=== PATIENT | female | born 1985 | race Caucasian/White ===

== ENCOUNTER 2022-04-16 10:59 | Emergency (ER) | payer OTHER, MEDICAID ==
[2022-04-16] MEDS ORDERED: Sodium Chloride 0.9% 10 ML Syringe FLUSH PRN (11:00)
[2022-04-16] MEDS: Lactated Ringers 1,000 ML IV ONE (11:18)
[2022-04-16] MEDS: Ondansetron 4 MG/2 ML SDV IVPUSH ONE (11:19)
== END 2022-04-16 11:55 | disposition home or self-care (01) ==
LOC: VM.ED 10:59
DX: R11.2 Nausea with vomiting, unspecified (principal); T45.4X5A Adverse effect of iron and its compounds, initial encounter; J45.909 Unspecified asthma, uncomplicated; Z88.5 Allergy status to narcotic agent; Z88.8 Allergy status to other drugs, medicaments and biological substances; Z91.041 Radiographic dye allergy status; Z79.899 Other long term (current) drug therapy
CPT/HCPCS: 96361; 96374; 99283; 99283-25; J2405; J7120

== ENCOUNTER 2022-04-29 08:17 | Day surgery (SDC) | payer OTHER, MEDICAID ==
[~2022-04-29 08:17] MED LIST: Lactated Ringers 1,000 ML IV SCH
[2022-04-29] MEDS ORDERED: fentaNYL 100 MCG/2 ML SDV ONE (08:46)
[2022-04-29] MEDS ORDERED: Propofol 200 MG/20 ML SDV ONE ×3 (08:46→10:18)
== END 2022-04-29 13:45 | disposition home or self-care (01) ==
LOC: VM.SDS 08:17
PROVIDERS: ATTEND Family Medicine
DX: K29.80 Duodenitis without bleeding (principal); K29.50 Unspecified chronic gastritis without bleeding; I10 Essential (primary) hypertension; D50.9 Iron deficiency anemia, unspecified; K62.89 Other specified diseases of anus and rectum; K29.60 Other gastritis without bleeding; F41.9 Anxiety disorder, unspecified; F32.A Depression, unspecified; J45.909 Unspecified asthma, uncomplicated; E16.2 Hypoglycemia, unspecified; D72.819 Decreased white blood cell count, unspecified; Z79.899 Other long term (current) drug therapy; Z91.041 Radiographic dye allergy status; Z88.5 Allergy status to narcotic agent; Z88.2 Allergy status to sulfonamides
CPT/HCPCS: 00813; 81025; J2704; J3010; J7120